=== PATIENT | female | born 1980 | race Caucasian/White ===

== ENCOUNTER 2016-08-17 03:49 | Inpatient (IN) | payer SELFPAY ==
[~2016-08-17] VITALS: Ht 157.5 cm; Wt 70.2 kg
[2016-08-17 04:08] VITALS: Ht 157.5 cm; Wt 70.2 kg
[2016-08-17 04:09] VITALS: BP 119/74; PULSE 83; RESP 18
[2016-08-17] MEDS: LACTATED RINGER'S 1,000 ML IV SCH ×3 (05:15→20:38)
--- NOTE | 2016-08-17 05:43 | HP ---
Date/Time of Note Date/Time of Note DATE: 08/17/16 TIME: 05:40 OB - History Hx of Present Free Text/Dictation 36 yo P3 @ 27wks 3 days presents w ctx, no VB,no LOF, good FM : 4 Para: 3 Past Family/Social History * Past Medical, Surgical, Family and Obstetric Histories reviewed from chart. OB Admission Exam Vital Signs Vital Signs Vital Signs Date Time Temp Pulse Resp B/P Pulse Ox O2 Delivery O2 Flow Rate FiO2 08/17/16 04:09 98.1 83 18 119/74 Room Air Physical Exam Abdomen: WNL Cervical Dilatation: 1cm Effacement: 50% Station: -3 Membranes: Intact Heart Rate: 140's Accelerations: Accelerations Present Decelerations: No Decelerations Varibility: Moderate Contractions on Admission: < 5 Minutes Apart Intensity: Mild OB Assessment/Plan Other Assessment: 36 yo P 3 @ 27.3 wks in PTL - ctx q 2-4 min - reassuring status Other plan: Admit to L&D - mag sulfate, steroids, - no pre- records, will order pre- labs KIM CAPPS MD Aug 17, 2016 05:43
[2016-08-17] MEDS ORDERED: MAGNESIUM SULFATE 4 GM/100 ML 100 ML IV ONE (06:00)
[2016-08-17] MEDS: BETAMET NA PHOS/AC(6 MG/ML) 5ML INJ IM SCH (06:22)
--- NOTE | 2016-08-17 06:29 | RADRPT ---
PROCEDURE: Obstetrical ultrasound, limited. CLINICAL INDICATION: labor. TECHNIQUE: Multiple sonographic images of the pelvis were obtained using transabdominal technique . Images were obtained with pinto scale and color Doppler. Transvaginal evaluation of the cervix was also performed. The images were reviewed on a PACS workstation. COMPARISON: No prior studies are available for comparison. FINDINGS: There is a single living intrauterine gestation with the fetus in a breech presentation. hear t tones of 144 beats per minute are identified. The placenta is posterior in location, grade 2. Th e cervix is closed measuring 4.7 cm. There is normal amniotic fluid volume with an JOSEFA of 13.2 cm. IMPRESSION: Single viable intrauterine gestation. Cervical length of 4.7 cm. .Lit Hernandez MD, MD Date Time Electronically viewed and signed by .Lit Hernandez MD, MD on 08/17/2016 06:29 .T/
[2016-08-17] MEDS: MAGNESIUM SULFATE 20 GM/500 ML 500 ML IV SCH (06:40)
[2016-08-17 08:10] LABS: INR 0.92; PROTIME 12.4 Sec (12.2-14.2)
[2016-08-17 08:11] LABS: PARTIAL THROMBOPLASTIN TIME 25.5 Sec (25.0-35.0)
[2016-08-17 08:18] LABS: BASOPHILS % 0.3 % (0.0-2.0); EOSINOPHILS # 0.1 10^3/ul (0.0-0.5); EOSINOPHILS % 1.1 % (0.0-7.0); HEMATOCRIT 37.5 % (37.0-47.0); HEMOGLOBIN 12.8 g/dl (12.0-16.0); LYMPHOCYTES # 1.6 10^3/ul (0.8-2.9); LYMPHOCYTES % 20.1 % (15.0-51.0); MEAN CORPUSCULAR HEMOGLOBIN 31.6 pg (29.0-33.0); MEAN CORPUSCULAR HGB CONC 34.1 g/dl (32.0-37.0); MEAN CORPUSCULAR VOLUME 92.5 fl (82.0-101.0); MEAN PLATELET VOLUME 7.7 fl (7.4-10.4); MONOCYTE # 0.7 10^3/ul (0.3-0.9); MONOCYTES % 9.1 % (0.0-11.0); NEUTROPHIL # 5.5 10^3/ul (1.6-7.5); NEUTROPHILS % 69.4 % (39.0-77.0); PLATELET COUNT 276 10^3/UL (140-440); RED BLOOD COUNT 4.05 10^6/ul (4.20-5.40); RED CELL DISTRIBUTION WIDTH 14.1 % (11.5-14.5); UNCORRECTED WBC 7.9 10^3/ul (4.8-10.8); WHITE BLOOD COUNT 7.9 10^3/ul (4.8-10.8)
[2016-08-17 08:54] LABS: CONDITION 1
[2016-08-17] MEDS ORDERED: LACTATED RINGER'S 1,000 ML IV SCH (11:06)
[2016-08-17] MEDS: MULTIVIT/MIN/FOLATE/IRON/PREN TAB PO SCH (11:06)
[2016-08-17] MEDS ORDERED: OXYTOCIN 30 UNITS/LR 500 ML IV PRN (11:30)
[2016-08-17] MEDS ORDERED: METHYLERGONOVINE 0.2 MG INJ IM PRN (11:30)
[2016-08-17] MEDS ORDERED: BUTORPHANOL 2 MG INJ IV PRN (11:30)
[2016-08-17] MEDS ORDERED: MISOPROSTOL 200 MCG TAB PR PRN (11:30)
[2016-08-17] MEDS ORDERED: IBUPROFEN 600 MG TAB PO PRN (11:30)
[2016-08-17] MEDS ORDERED: CARBOPROST 250 MCG INJ IM PRN (11:30)
--- NOTE | 2016-08-17 13:01 | QN ---
Documentation Comment Laborist Pt seen, FHT and toco reviewed. Pt no longer feeling UCs. BP 103/63 FHT: Category 1, baseline 130s [place]: Acontractile CL: 4.7cm and closed A/P: Admitted for tocolytics and corticosteroids 2/2 concern for PTL ->Pt s/p BMZ #1, next dose tomorrow AM ->Continue Magnesium Sulfate through BMZ window then will discontinue and liberalize pt to assess for PTL sxs ->FWB reassuring, CEFM and toco ->Advance diet to regular Plan d/w pt. Questions answered to her satisfaction. CARLOS AVENDANO MD Aug 17, 2016 13:01
--- NOTE | 2016-08-17 17:31 | RADRPT ---
PROCEDURE: Real Time Sonogram. 08/17/20165:01 PM CLINICAL INDICATION: labor. TECHNIQUE: This procedure was performed on a ultrasound real time Unit using a endovaginal probe. COMPARISON: 08/17/2016 OB sonogram. FINDINGS: Presentation: Breech. Cervical Length: Not measured. Previously 4.7 cmPlacental Location: Posterior, grade 1 placenta.P lacental Previa: No. Body limb and cardiac motion: Yes.Heart rate: 142 beats per minute. anatomy was not evaluated. sex: Not available. Amniotic fluid volume:Not measured but appears normal by visual examination. Amniotic fluid volume percentiles: Measured data: BPD:6.3 cm25 weeks 3 days. HC:24.326 weeks 3 days. AC:21.9 cm25 weeks 3 days. FC:4.8 cm26 weeks 0 days. AUA:26 weeks 1 dayplus or minus 1 week 6 days. ALIZA (AUA):11/22/2016. Serial scan estimated menstrual age: Not calculated. weight: 912 g; 7.2% Endovaginal imaging utilized: Yes. Additional findings: No. IMPRESSION: See above RPTAT:AAJJ Physician Hitesh Date Time Electronically viewed and signed by Physician Hitesh on 08/17/2016 17:31 /
[2016-08-17 18:34] LABS: ADD UMIC YES; URINE BILIRUBIN (Dip) NEGATIVE (NEGATIVE); URINE BLOOD (Dip) NEGATIVE (NEGATIVE); URINE COLOR LT. YELLOW (YELLOW); URINE GLUCOSE (Dip) NEGATIVE (NEGATIVE); URINE KETONES (Dip) 15 (NEGATIVE); URINE LEUKOCYTE ESTERASE (Dip) TRACE (NEGATIVE); URINE NITRITE (Dip) NEGATIVE (NEGATIVE); URINE TOTAL PROTEIN (Dip) NEGATIVE (NEGATIVE); URINE UROBILINOGEN (Dip) 0.2 E.U./dL (0.1-1.0)
[2016-08-17 18:52] LABS: BARBITURATES Negative (NEGATIVE); BENZODIAZEPINES Negative (NEGATIVE)
[2016-08-17 18:56] LABS: SQUAMOUS EPITHELIAL CELL,UR FEW; URINE RBCS NONE SEEN /HPF (0)
[2016-08-17 18:59] LABS: CANNABINOIDS Negative (NEGATIVE); COCAINE Negative (NEGATIVE); OPIATES Negative (NEGATIVE)
[2016-08-18] MEDS: MAGNESIUM SULFATE 20 GM/500 ML 500 ML IV SCH (02:02)
[2016-08-18] MEDS: LACTATED RINGER'S 1,000 ML IV SCH ×2 (04:25→14:15)
[2016-08-18] MEDS: BETAMET NA PHOS/AC(6 MG/ML) 5ML INJ IM SCH (06:15)
[2016-08-18] MEDS: MULTIVIT/MIN/FOLATE/IRON/PREN TAB PO SCH (09:10)
--- NOTE | 2016-08-18 12:27 | PD.PPDC ---
EXTERIOR INTERIOR SPECIALIST Discharge Instruction Condition Patient Condition: Good Follow-up Follow-up with Physician: 2, Day/Days HARSHAD MARSHALL MD Aug 18, 2016 12:27
--- NOTE | 2016-08-18 13:30 | DS ---
DATE OF ADMISSION: 08/17/2016 DATE OF DISCHARGE: DISCHARGE DIAGNOSIS: Intrauterine at 27 weeks. uterine contractions, resolved. HISTORY AND HOSPITAL COURSE: The patient is a 36-year-old G5, P3, presented at 27 weeks with no pre cole care, complaining of uterine contractions. Patient was admitted for labor management. Her ____ was 4.7; however, the patient was luz elena. The patient was admitted, started on mag nesium and betamethasone. The patient was consented for full dose of betamethasone as ____ extracti ng. No leakage of fluid, no vaginal bleeding, positive movement. The patient has no other co mplaints. Patient discharged home today. Follow up with [facility] within 12 days. ER precautions given. The p atient is stable upon discharge. Dictated By: HARSHAD MARSHALL MD /NTS Conf#: [id number] DID#: [id number]
== END 2016-08-18 16:42 | disposition home or self-care (01) | DRG 780 ==
LOC: L-D 03:49 → OBT 03:49 → L-D 03:56 → OBT 06:00 → L-D 08:56 → OBG 20:14
PROVIDERS: ADMIT Obstetrics & Gynecology; ATTEND Obstetrics & Gynecology
DX: O47.02 False labor before 37 completed weeks of gestation, second trimester (principal); O09.522 Supervision of elderly multigravida, second trimester; Z3A.27 27 weeks gestation of pregnancy
CPT/HCPCS: 36415; 76815; 76817; 80307; 81001; 81003; 83735; 85025; 85610; 85730; 86592; 86703; 86762; 86900; 86901; 87340; G0463; J0702; J3475; J7120